=== PATIENT | male | born 1955 | race Caucasian/White ===

== ENCOUNTER → 2021-04-12 | Outpatient (CLI) | payer OTHER ==
--- NOTE | 2021-04-12 11:52 | 2DMMODE ---
[facility] [address] 2 D/M-MODE ECHOCARDIOGRAM Name: SHAQ CASANOVA Room #: REG ABIMBOLA [place]#: [id number] Admission: 04/12/21 Attend Phys: Tyree Dugan Discharge: Date of : 55 Report #: [id number] THIS REPORT FOR: cc: Anel Dunne MD, Stephanie B. MD Lammoglia, Francisco J. MD ~ APPROVED REPORT Study performed: 04/12/2021 10:26:25 EXAM: Comprehensive 2D, Doppler, and color-flow Echocardiogram Patient Location: Out-Patient Room #: 1 Status: routine BSA: 2.09 HR: 70 bpm BP: 138/84 mmHg Rhythm: NSR Other Information Study Quality: Good Indications ICD: Arrhythmia 2D Dimensions IVC: 17.00 mm Aortic Valve AoV Peak Wilder.: 1.32 m/s AO Peak Gr.: 6.92 mmHg LVOT Max P.47 mmHg LVOT Max V: 1.06 m/s Mitral Valve E/A Ratio: 0.9 MV Decel. Time: 261.20 ms MV E Max Wilder.: 0.59 m/s MV A Wilder.: 0.69 m/s MV PHT: 75.75 ms IVRT: 129.18 ms Pulmonary Valve PV Peak Wilder.: 1.01 m/s PV Peak Gr.: 4.06 mmHg [facility] [address] [place] [address] 2 D/M-MODE ECHOCARDIOGRAM Name: SHAQ CASANOVA Room #: REG [facility]#: [id number] Admission: 04/12/21 Attend Phys: Tyree Soto Discharge: Date of : 55 Report #: [id number] Pulmonary Vein P Vein S: 0.38 m/s P Vein A: 0.24 m/s P Vein D: 0.33 m/s P Vein A Dur.: 110.7 msec P Vein S/D Ratio: 1.15 Tricuspid Valve TR Peak Wilder.: 2.71 m/s TR Peak Gr.: 29.35 mmHg PA Pressure: 34.00 mmHg Left Ventricle The left ventricle is normal size. There is normal LV segmental wall motion. There is normal left ventricular wall thickness. The left ventricular systolic function is normal. The left ventricular ejection fraction is within the normal range. LVEF is 55-60%. Grade I - abnormal relaxation pattern. Right Ventricle The right ventricle is normal size. The right ventricular systolic function is normal. Device lead is present in the right ventricle. Atria The left atrium size is normal. The right atrium size is normal. Device lead is present in the right atrium. Aortic Valve The aortic valve is normal in structure. No aortic regurgitation is present. There is no aortic valvular stenosis. Mitral Valve The mitral valve is normal in structure. Trace mitral regurgitation. No evidence of mitral valve stenosis. Tricuspid Valve The tricuspid valve is normal in structure. There is trace tricuspid regurgitation. Estimated PAP 34 mmHg. There is mild pulmonary hypertension. Pulmonic Valve The pulmonary valve is normal in structure. There is no pulmonic valvular regurgitation. Great Vessels The aortic root is normal in size. IVC is normal in size and collapses >50% with inspiration. [facility] [address] [place] [address] 2 D/M-MODE ECHOCARDIOGRAM Name: SHAQ CASANOVA Room #: REG [facility].#: [id number] Admission: 04/12/21 Attend Phys: Tyree Soto Discharge: Date of : 55 Report #: [id number] Pericardium There is no pericardial effusion. <Conclusion> The left ventricle is normal size. LVEF is 55-60%. The right ventricle is normal size. Device lead is present in the right ventricle. The left atrium size is normal. The right atrium size is normal. Device lead is present in the right atrium. The aortic valve is normal in structure. The mitral valve is normal in structure. Trace mitral regurgitation. The tricuspid valve is normal in structure. There is trace tricuspid regurgitation. Estimated PAP 34 mmHg. There is mild pulmonary hypertension. The pulmonary valve is normal in structure. The aortic root is normal in size. There is no pericardial effusion. <ELECTRONICALLY SIGNED> By: Cedrick Mars MD 04/12/21 1151 115 115 Cedrick Mars MD /INF
--- NOTE | 2021-04-12 11:59 | EKG ---
[place] [address] [address] [place] [address] ELECTROCARDIOGRAM REPORT Name: SHAQ CASANOVA Room #: REG ABIMBOLA [place]#: [id number] Admission: 04/12/21 Attend Phys: Tyree Dugan Discharge: Date of : 55 Report #: [id number] Test Date: 2021-04-12 Test Time: 09:45:26 Pat Name: SHAQ CASANOVA Department: Room: Gender: [place] Department Supervisor: : 1955 Requested By: Tyree Vick Order Number: [id number] : Boyd Rabago Measurements Intervals [place] Rate: 73 P: 69 ND: 114 QRS: -45 QRSD: 131 T: 211 QT: 568 QTc: 626 Interpretive Statements Atrial-sensed ventricular-paced rhythm No further analysis attempted due to paced rhythm No previous ECG available for comparison Electronically Signed On 04-12-2021 11:58:50 [employer] by Boyd Rabago [email or web address] <ELECTRONICALLY SIGNED> By: Boyd Rabago MD, [facility] 04/12/21 1158 0945 09 Boyd Rabago MD, FACC /EPI
== END ==
LOC: RAD 08:58
PROVIDERS: ATTEND Chiropractor
DX: I27.20 Pulmonary hypertension, unspecified (principal); Z95.0 Presence of cardiac pacemaker; I25.89 Other forms of chronic ischemic heart disease